=== PATIENT | male | born 1960 | race Caucasian/White ===

== ENCOUNTER 2023-04-07 17:27 | Emergency (ER) | payer BC ==
[2023-04-07] MEDS: Lidocaine 1% 10 ML MDV INJECT ONE (17:45)
== END 2023-04-07 17:57 | disposition home or self-care (01) ==
LOC: VM.ED 17:27
DX: S61.442A Puncture wound with foreign body of left hand, initial encounter (principal); W45.8XXA Other foreign body or object entering through skin, initial encounter
CPT/HCPCS: 99283; J3490